=== PATIENT | male | born 1995 | race Caucasian/White ===

== ENCOUNTER 2018-11-18 06:34 | Emergency (ER) | payer SELFPAY ==
[2018-11-18] MEDS ORDERED: Dexamethasone 10 MG/ML VIAL ONE (07:33)
== END 2018-11-18 07:38 | disposition home or self-care (01) ==
LOC: ERS 06:34
DX: J02.9 Acute pharyngitis, unspecified (principal); F32.9 Major depressive disorder, single episode, unspecified
CPT/HCPCS: 87081; 87430; J1100